=== PATIENT | female | born 1985 | race Hispanic/Latino ===

== ENCOUNTER 2022-11-27 18:18 | Emergency (ER) | payer BC ==
[~2022-11-27] VITALS: Ht 160 cm; Wt 124.7 kg
[2022-11-27] MEDS ORDERED: PREDNISONE 20 MG TAB PO ONE (19:15)
[2022-11-27] MEDS ORDERED: PREDNISONE50 MG PO (19:21)
[2022-11-27] MEDS ORDERED: PREDNISONE 20 MG TAB ONE (19:21)
[2022-11-27] MEDS ORDERED: METHOCARBAMOL750 MG PO (19:25)
[2022-11-27] MEDS ORDERED: HYDROCODON-ACE1 EA12 PO (19:27)
[2022-11-27] MEDS ORDERED: PANTOPRAZOLE SO40 MG PO (19:32)
== END 2022-11-27 19:45 | disposition home or self-care (01) ==
LOC: FSED 18:27
DX: M54.12 Radiculopathy, cervical region (principal); I10 Essential (primary) hypertension; I49.3 Ventricular premature depolarization; K21.9 Gastro-esophageal reflux disease without esophagitis; E66.9 Obesity, unspecified
CPT/HCPCS: 99283; J7512